=== PATIENT | male | born 1935 | race African-American/Black ===

== ENCOUNTER 2018-10-16 21:29 | Inpatient (IN) | payer MEDICARE, MEDICAID ==
[~2018-10-16] VITALS: Ht 180.3 cm; Wt 81.6 kg
[2018-10-16] MEDS ORDERED: ONDANSETRON HCL 4MG/2ML INJ IV STA (22:46)
[2018-10-16 22:56] LABS: EOSINOPHILS % 0.4 % (0.0-5.0); HEMATOCRIT. 42.6 % (42.0-52.0); HEMOGLOBIN. 14.9 g/dL (14.0-18.0); LYMPHOCYTES % 16.5 % (20.0-50.0); MEAN CORPUSCULAR HEMOGLOBIN 33.2 pg (28.0-32.0); MEAN CORPUSCULAR VOLUME 94.8 fL (80.0-94.0); MEAN PLATELET VOLUME 9.4 fl (7.4-10.4); MONOCYTES % 6.8 % (2.0-8.0); NEUTROPHILS % 75.3 % (40.0-76.0); PLATELET 256 x1000/uL (130-400); RED BLOOD CELL COUNT 4.49 mill/uL (4.7-6.1); RED CELL DISTRIBUTION WIDTH 12.5 % (11.6-14.6)
[2018-10-16 22:59] LABS: CHLORIDE 92 mEq/L (98-107)
[2018-10-16] MEDS ORDERED: SODIUM CHLORIDE 0.9% 1000ML BAG (SEPSIS BOLUS) IV ONE (23:00)
[2018-10-16] MEDS ORDERED: CEFTRIAXONE 1 G PREMIX 50 ML IV ONE (23:00)
[2018-10-16] MEDS ORDERED: DIATR MEGLU/DIATRIZOATE SOLN 30ML ONE (23:08)
[2018-10-17] VITALS (7 sets, daily range): BP systolic 112–163; BP diastolic 71–99
[2018-10-17 01:13] LABS: CLARITY URINE CLEAR (CLEAR); COLOR URINE DARK YELLOW (YELLOW); KETONES URINE 1+ (NEGATIVE); LEUKOCYTE ESTERASE URINE TRACE (NEGATIVE); NITRITE URINE NEGATIVE (NEGATIVE); OCCULT BLOOD URINE NEGATIVE (NEGATIVE); PROTEIN URINE NEGATIVE (NEGATIVE); SPECIFIC GRAVITY URINE 1.016 (1.005-1.030)
[2018-10-17] MEDS ORDERED: ONDANSETRON HCL 4MG/2ML INJ IV PRN (09:15)
[2018-10-17] MEDS: DEXT 5%/0.45% NACL 1000ML 1,000 ML IV SCH ×2 (10:02→23:39)
[2018-10-17] MEDS: FAMOTIDINE 20MG/2ML VIAL IV SCH (10:04)
[2018-10-17] MEDS ORDERED: MELO-106 PO (11:39)
[2018-10-17] MEDS ORDERED: TRIA1TAB92 PO (11:39)
[2018-10-17] MEDS ORDERED: AMLO10TA80 PO (11:39)
[2018-10-17] MEDS ORDERED: FAMOTIDINE 20MG/2ML VIAL IV SCH (21:00)
[2018-10-17] MEDS ORDERED: CEFTRIAXONE 1 G PREMIX 50 ML IV SCH (23:00)
[2018-10-18] VITALS: BP 130/56
[2018-10-18 04:00] VITALS: BP 120/71
[2018-10-18] MEDS: DEXT 5%/0.45% NACL 1000ML 1,000 ML IV SCH ×2 (06:07→16:25)
[2018-10-18 06:59] LABS: BASOPHILS % 0.4 % (0.0-2.0); EOSINOPHILS % 1.6 % (0.0-5.0); HEMATOCRIT. 35.1 % (42.0-52.0); HEMOGLOBIN. 11.9 g/dL (14.0-18.0); LYMPHOCYTES % 28.2 % (20.0-50.0); MEAN PLATELET VOLUME 9.8 fl (7.4-10.4); MONOCYTES % 9.9 % (2.0-8.0); NEUTROPHILS % 59.9 % (40.0-76.0); PLATELET 195 x1000/uL (130-400); RED BLOOD CELL COUNT 3.62 mill/uL (4.7-6.1); RED CELL DISTRIBUTION WIDTH 12.4 % (11.6-14.6)
[2018-10-18 07:55] LABS: PHOSPHORUS 2.8 mg/dL (2.5-4.9)
[2018-10-18 09:00] VITALS: BP 168/89
[2018-10-18] MEDS: FAMOTIDINE 20MG/2ML VIAL IV SCH (09:38)
[2018-10-18 12:19] VITALS: BP 105/66
[2018-10-18 16:57] VITALS: BP 142/74
[2018-10-18 18:35] VITALS: BP 142/74
== END 2018-10-18 19:59 | disposition home or self-care (01) | DRG 444 ==
LOC: ER 21:29 → 6WST 10-17 02:28 → EDBEDREQDT 10-17 02:44 → EDBEDREQSVC 10-17 02:44 → EDBEDREQTM 10-17 02:44 → EDBEDREQ 10-17 02:44 → ENRESERV 10-17 03:52
PROVIDERS: ADMIT Internal Medicine; ATTEND Internal Medicine
DX: K80.10 Calculus of gallbladder with chronic cholecystitis without obstruction (principal); N17.0 Acute kidney failure with tubular necrosis; I12.9 Hypertensive chronic kidney disease with stage 1 through stage 4 chronic kidney disease, or unspecified chronic kidney disease; E83.52 Hypercalcemia; E86.0 Dehydration; F12.90 Cannabis use, unspecified, uncomplicated; M19.90 Unspecified osteoarthritis, unspecified site; N18.3 Chronic kidney disease, stage 3 (moderate); N40.0 Benign prostatic hyperplasia without lower urinary tract symptoms; Z86.73 Personal history of transient ischemic attack (TIA), and cerebral infarction without residual deficits; Z87.891 Personal history of nicotine dependence; Z79.899 Other long term (current) drug therapy; Z90.79 Acquired absence of other genital organ(s); Z91.11 Patient's noncompliance with dietary regimen
CPT/HCPCS: 36415; 71045; 74176; 74181; 80048; 82570; 83605; 83735; 83880; 83935; 84100; 84145; 84300; 84484; 93005; 96365; 96375; 99285; J0696; J2405; J3490; J7030; Q9963